=== PATIENT | male | born 1950 | race Caucasian/White ===

== ENCOUNTER 2019-08-01 23:26 | Observation (INO) | payer MEDICARE ==
[~2019-08-01] VITALS: Ht 182.9 cm; Wt 72.3 kg
[2019-08-01] MEDS ORDERED: ASPIRIN 81 MG CHEW TAB PO ONE (23:45)
[2019-08-02] VITALS (8 sets, daily range): BP systolic 96–172; BP diastolic 69–83
[2019-08-02 00:36] LABS: BASOPHILS # (AUTO) 0.1 (0.0-0.1); EOSINOPHILS # (AUTO) 0.4 (0.0-0.4); EOSINOPHILS % 3.7 % (0.0-6.0); HEMOGLOBIN 14.3 g/dL (14.0-18.0); LYMPHOCYTES # (AUTO) 2.6 (1.0-3.2); MEAN CORPUSCULAR HEMOGLOBIN 29.7 pg (28-32); MEAN CORPUSCULAR VOLUME 87.3 fL (81-99); MONOCYTES % 8.3 % (4.4-11.3); NEUTROPHILS # (AUTO) 7.6 (2.1-6.9); NEUTROPHILS % 64.8 % (38.7-80.0); PLATELET COUNT 285 x10e3/uL (140-360); RED BLOOD COUNT 4.81 x10e6/uL (4.3-5.7); RED CELL DISTRIBUTION WIDTH 14.6 % (11.7-14.4)
[2019-08-02 00:37] LABS: BILIRUBIN,URINE NEGATIVE (NEGATIVE); CLARITY,URINE CLEAR (CLEAR); COLOR,URINE YELLOW (YELLOW); KETONES,URINE NEGATIVE (NEGATIVE); LEUKOCYTE ESTERASE ,URINE NEGATIVE (NEGATIVE); NITRITE,URINE NEGATIVE (NEGATIVE); PROTEIN,URINE DIPSTICK NEGATIVE (NEGATIVE); URINE UROBILINOGEN 0.2 mg/dL (0.2 - 1)
[2019-08-02 00:44] LABS: AMPHETAMINES SCREEN,URINE NEGATIVE (NEGATIVE); BACTERIA,URINE FEW /HPF; BENZODIAZEPINES SCREEN,URINE NEGATIVE (NEGATIVE); EPITHELIAL CELLS,URINE FEW /LPF; PHENCYCLIDINE SCREEN,URINE NEGATIVE (NEGATIVE); WBC,URINE (MAN) 0-5 /HPF (0-5)
--- NOTE | 2019-08-02 01:13 | Diagnostic Imaging Report ---
EXAMINATION: CHEST SINGLE (PORTABLE) INDICATION: Chest pain COMPARISON: Chest radiograph 01/05/2017 FINDINGS: AP view TUBES/LINES/DEVICES: Stable intrathecal thoracic stimulator device within the mid thoracic spine.. LUNGS: Lungs are well inflated. Stable 1.2 cm nodule in the left lower lateral lung field . There is no evidence of pneumonia or pulmonary edema. PLEURA: No pleural effusion or pneumothorax. HEART AND MEDIASTINUM: The cardiomediastinal silhouette is unremarkable. Aortic arch calcifications. BONES AND SOFT TISSUES: No acute osseous lesion. Soft tissues are unremarkable. Healed right rib 7 fracture. UPPER ABDOMEN: No free air under the diaphragm. IMPRESSION: No acute thoracic radiographic abnormality. Stable 1.2 cm nodule in the left lower lateral lung field is likely nipple shadow. Recommend nonemergent chest radiographs, PA and lateral, with nipple markers and oblique views for confirmation. Signed by: Patrice Peace DO on 08/02/2019 1:10 AM
[2019-08-02 01:17] LABS: ALBUMIN 3.8 g/dL (3.5-5.0); ALBUMIN/GLOBULIN RATIO 1.1 (0.8-2.0); CALCIUM 9.8 mg/dL (8.4-10.2); CREATININE, SERUM 1.88 mg/dL (0.72-1.25); POTASSIUM 3.5 mmol/L (3.5-5.1)
[2019-08-02 01:29] LABS: CREATINE KINASE MB 1.4 ng/mL (0-5.0)
[2019-08-02 01:36] LABS: ANION GAP 17.5 mmol/L (8-16)
[2019-08-02] MEDS ORDERED: ASPIRIN 81 MG CHEW TAB PO ONE (01:45)
--- OUTSIDE RECORDS SUMMARY | 2019-08-02 02:24 | XMS REPORT ---
Author Author [facility] Address Unknown Phone Unavailable Care Team Providers Care [employer] Name Role Phone Dieudonne APONTE Unavailable Unavailable Problems This patient has no known problems. Allergies, Adverse Reactions, Alerts This patient has no known allergies or adverse reactions. Medications This patient has no known medications. Results Test Description Test Time Test Comments Text Results Atomic Results Result Comments CHEST SINGLE (PORTABLE) 2019-08-02 01:06:00 [place] [address] Patient Name: GUIDO DUARTE MR #: [id number] : 1950 Age/Sex: 69/M Req #: [id number] [facility] Physician: Ordered by: REGINO APONTE MD Report #: [id number] Location: ER Room/Bed: Procedure: [id number] DX/CHEST SINGLE (PORTABLE) Exam Date: 08/02/19 Exam Time: 0015 REPORT STATUS: Signed EXAMINATION: CHEST SINGLE (PORTABLE) LEIGHTON CATION: Chest pain COMPARISON: Chest radiograph 01/05/2017 FINDINGS: AP view TUBES/LINES/DEVICES: Stable intrathecal thoracic stimulator device within the mid thoracic spine.. LUNGS: Lungs are well inflated. Stable 1.2 cm nodule in the left lower lateral lung field . There is no evidence of pneumonia or pulmonary edema. PLEURA: No pleural effusion or pneumothorax. HEART AND MEDIASTINUM: The cardiomediastinal silhouette is unremarkable. Aortic arch calcifications. BONES AND SOFT TISSUES: No acute osseous lesion. Soft tissues are unremarkable. Healed right rib 7 fracture. UPPER ABDOMEN: No free air under the diaphragm. IMPRESSION: No acute thoracic radiographic abnormality. Stable 1.2 cm nodule in the left lower lateral lung field is likely nipple shadow. Recommend nonemergent chest radiographs, PA and lateral, with nipple markers and oblique views for confirmation. Signed by: Patrice Peace DO on 08/02/2019 1:10 AM Dictated By: PATRICE PEACE DO 9 Transcribed By: MANISHA on 08/02/19109 COPY TO: REGINO APONTE MD
--- NOTE | 2019-08-02 02:30 | NUR ---
Patient arrived from ER. Patient alert and oriented x2. Patient has no symptoms of distress noted. Patient instructed to use call lynn for assistance. Patient instructed not to get out of bed. Patient verbalized understanding. Patient unable to name current medications. Patient will bring list of medications and preferred pharmacy.
[2019-08-02 08:47] LABS: CHOL/HDL RATIO 3.7 (3.9-4.7)
[2019-08-02] MEDS ORDERED: ASPIRIN 325 MG TAB PO SCH (09:00)
[2019-08-02] MEDS: FAMOTIDINE 20 MG TAB PO SCH ×2 (09:20→17:22)
--- NOTE | 2019-08-02 12:00 | NUR ---
Spoke to patient's , Betty Mckinney [phone] on the telephone, phone number will given to admissions department for patient's records.
[2019-08-02 13:21] LABS: CREATINE KINASE MB 0.9 ng/mL (0-5.0)
--- NOTE | 2019-08-02 13:34 | NUR ---
WOUND CARE SCREENING DONE 69 YO MALE R/T 16 KEVIN SCORE NO ABNORMAL FINDINGS NOTED DURING TOTAL SKIN ASSESSMENT PATIENT STATES ABILITY TO TURN AND OFFLOAD NURSING CONTINUES TO MAINTAIN MODERATE PUP INTERVENTIONS AND ALTERNATING PRESSURE SURFACE NURSING TO CONSULT WOUND CARE FOR ANY FUTURE SKIN CARE OR INTERVENTION NEEDS Addendum: 08/02/19 at 1336 by Constantino Jones RN Amended: Links added.
--- NOTE | 2019-08-02 13:42 | NUR ---
Nutrition Intervention Note RD Recommendation(s) for Physician: -Consider 2000 ADA, cardiac diet per MD. -If BS are elevated, consider switching Ensure Compact to Glucerna. Plan of Care: RD following, monitoring for tolerance and adequacy. Ensure Compact BID. Nutrition reason for involvement: -MST- 5 RD Assessment 08/02: 69 YOM admitted for chest pain and dementia with PMH listed below. Pt reports that his appetite has been poor for about one year and that he lost 50 lbs. The pt stated his UBW is around 180-190 lbs. Per his EMR, the pt was 162 lbs in 2017 suggesting a 3% weight loss within 2 years which is not significant. The pt has never tried a ONS before but was open to trying one. Pt reported he has some N/V, denied chewing or swallowing issues as well as any food allergies. Pt had no other questions or concerns. Will continue to monitor. Principal Problems/Diagnoses: PMH: Past Medical History Hypertension Diabetes Seizure Disorder Cirrhosis GI: LBM: not recorded Skin: 2 x 2 inch wound (where on the body is not recorded, not PU related) Labs: 08/02: POC GM 114 Meds: pepcid, aspirin, lovenox Ht: 72 in Wt: 157 lbs BMI:21.3 kg/m^2 IBW:178 lbs Malnutrition Evaluation 08/02 The patient does not meet criteria for a specified degree of malnutrition at this time. Will re-evaluate at follow-up as appropriate. Energy intake: -pt reports a poor appetite for over one year Weight loss: -pt had a 3% weight loss within 2 years per EMR. Fat loss: Mild Muscle loss: Moderate Supporting Evidence: Fluid accumulation: unable to evaluate Functional Status: unable to evaluate Nutrition Prescription (Diet Order): cardiac Estimated Nutritional Needs: Calories: 9110-1549(25- 35 kcal/kg/day) Weight used : CBW Protein : 71-107(1-1.5 gram/kg/day ) Weight used: CBW Diet Adequacy: Not meeting calorie needs, Not meeting protein need Diet Education Needs Assessment: Diet education indicated, but patient not appropriate for education at this time. Nutrition Care Level: mod Nutrition Diagnosis: Inadequate energy intake related to medical condition as evidenced by pts need for ONS and reports of poor oral intake. Goal: Patient will meet 75-100% of estimated needs by follow up Progress: N/A Interventions: - (mineral) sodium, fat, cholesterol-modified diet, Commercial beverage Monitoring/Evaluation: -Total energy intake, Total protein intake, Modified diet, Liquid supplement, Weight change Signed: Isabell Suh RD, LD
[2019-08-02] MEDS ORDERED: LEVETIRACETAM500 MG PO (16:46)
[2019-08-02] MEDS ORDERED: GABAPENTIN300 MG PO (16:50)
[2019-08-02] MEDS ORDERED: ASPIRIN EC81 MG PO (16:50)
[2019-08-02] MEDS ORDERED: TENORMIN50 MG PO (16:50)
[2019-08-02] MEDS ORDERED: GLIPIZIDE ER10 MG PO (16:50)
[2019-08-02] MEDS ORDERED: AMLODIPINE BESYL5 MG PO (16:50)
[2019-08-02] MEDS ORDERED: OMEPRAZOLE40 MG PO (16:50)
--- NOTE | 2019-08-02 16:52 | NUR ---
Patient has b/p of 172/82, p75, callled Mary Mccarthy, no answer received, will re-attempt.
[2019-08-02] MEDS: AMLODIPINE BESYLATE 5 MG TAB PO SCH (17:22)
[2019-08-02] MEDS: LEVETIRACETAM 500 MG TAB PO SCH (17:22)
[2019-08-02] MEDS: ENOXAPARIN SOD INJ 40 MG/0.4 ML SYR SC SCH (17:22)
[2019-08-02] MEDS: ATENOLOL 50 MG TAB PO SCH (17:23)
[2019-08-02 18:43] LABS: CREATINE KINASE 63 IU/L (30-200)
[2019-08-02] MEDS: GABAPENTIN 300 MG CAP PO SCH (21:24)
[2019-08-03] VITALS (9 sets, daily range): BP systolic 113–166; BP diastolic 76–95
[2019-08-03] MEDS: GABAPENTIN 300 MG CAP PO SCH ×3 (05:02→20:33)
[2019-08-03] MEDS: LEVETIRACETAM 500 MG TAB PO SCH ×2 (05:02→16:33)
--- NOTE | 2019-08-03 06:41 | NUR ---
H&P LATE ENTRY DOS 08-02-19 at 7am cc: right rib pain HPI: 69yoM, no PCP, with hx cig use 1/2ppd, developed right lower chest pain and cough. Pt admites that cough started before chest pain. PMH: current smoker, HTN PSHx: none Allergies; see emr Fh/SH; 1/2ppd cigs; ; meds; see MAR ROS; no f/c/s/N/V/D/MENDEZ/vision changes/skin rash/back pain v/s; revd PE: RIGHT LOWR RIB SITE TENDER; NO OVERLYING SKIN RASH tired appearing anicteric ns1s2 mod bs soft nt nd no e/t awake; colmenares skin dry n/. affect labs/meds; revd A/P: 69yoM Atypical chest pain Right rib pain Current smoker/Nicotine dependence HTN Abnormal EKG Hyponatremia MILAGROS 1.2cm left lung nodule PLAN IVF trend enzymes 2V CXR lipid panel lovenox/pepcid dispo: f/u further studies; Bucky Kwong MD, PhD.
--- NOTE | 2019-08-03 06:42 | NUR ---
IM- progress note O/N no events ROS; no f/c/s/N/V/D/MENDEZ/vision changes/skin rash/back pain v/s; revd PE: RIGHT LOWR RIB SITE TENDER; NO OVERLYING SKIN RASH tired appearing anicteric ns1s2 mod bs soft nt nd no e/t awake; colmenares skin dry n/. affect labs/meds; revd A/P: 69yoM Atypical chest pain Right rib pain Current smoker/Nicotine dependence HTN Abnormal EKG Hyponatremia MILAGROS 1.2cm left lung nodule DM2 PLAN IVF trend enzymes 2V CXR lipid panel lovenox/pepcid dispo: f/u further studies; 08/03 await CXR 2 view; recheck EKG; check hba1c. LDL 66. Will need CT chest with contrast if nodule is infact real; Treat MILAGROS with fluids; Bucky Kwong MD, PhD.
[2019-08-03] MEDS ORDERED: GLIPIZIDE 5 MG TAB ER PO SCH (07:30)
[2019-08-03] MEDS: PANTOPRAZOLE SOD 40 MG TABEC PO SCH (08:00)
[2019-08-03] MEDS: FAMOTIDINE 20 MG TAB PO SCH ×2 (08:00→16:33)
[2019-08-03] MEDS: ASPIRIN 81 MG ENTERIC COATED PO SCH (08:00)
[2019-08-03] MEDS: ATENOLOL 50 MG TAB PO SCH (08:00)
[2019-08-03] MEDS: AMLODIPINE BESYLATE 5 MG TAB PO SCH (08:00)
[2019-08-03 08:27] LABS: ANION GAP 13.6 mmol/L (8-16); CALCIUM 10.1 mg/dL (8.4-10.2); CREATININE, SERUM 1.49 mg/dL (0.72-1.25); POTASSIUM 3.6 mmol/L (3.5-5.1)
--- NOTE | 2019-08-03 08:37 | Diagnostic Imaging Report ---
EXAMINATION: CHEST 2 VIEWS INDICATION: Re-eval of pulmonary nodule- Please use nipple markers COMPARISON: Chest radiograph 08/02/2019 at 202 1:00 AM hours. FINDINGS: PA and lateral views with nipple markers. TUBES/LINES/DEVICES: Stable neurostimulator stimulator device with 2 rows of electrodes projected on the mid thoracic spine. LUNGS: Lungs are well inflated. Stable 1.2 cm nodule in the left lower lower lobe does not correspond with the nipple marker. No evidence of pneumonia or pulmonary edema. PLEURA: No pleural effusion or pneumothorax. HEART AND MEDIASTINUM: The cardiomediastinal silhouette is unremarkable. Aortic arch calcifications. BONES AND SOFT TISSUES: No acute osseous lesion. Soft tissues are unremarkable. Healed right rib 7 fracture. UPPER ABDOMEN: No free air under the diaphragm. IMPRESSION: 1.2 cm left lower lobe nodule does not correspond to a nipple marker and is consistent with a true nodule. Recommend further evaluation with nonemergent CT chest. Signed by: Dr. Donald Zambrano M.D. on 08/03/2019 8:33 AM
[2019-08-03] MEDS ORDERED: NON-FORMULARY MEDICATION (Glipizide (Glipizide Er) 1 TAB) PO SCH (09:00)
[2019-08-03] MEDS: SODIUM CHLORIDE 0.9% 1000ML 1,000 ML IV SCH ×2 (15:00→20:33)
[2019-08-03] MEDS: ENOXAPARIN SOD INJ 40 MG/0.4 ML SYR SC SCH (16:33)
[2019-08-04] VITALS: BP 149/89
[2019-08-04 04:00] VITALS: BP 121/83
[2019-08-04] MEDS: GABAPENTIN 300 MG CAP PO SCH ×2 (05:00→14:28)
[2019-08-04] MEDS: LEVETIRACETAM 500 MG TAB PO SCH ×2 (05:00→15:20)
[2019-08-04 06:05] LABS: ANION GAP 12.7 mmol/L (8-16); CALCIUM 9.4 mg/dL (8.4-10.2); CREATININE, SERUM 1.25 mg/dL (0.72-1.25); POTASSIUM 3.7 mmol/L (3.5-5.1)
--- NOTE | 2019-08-04 06:50 | NUR ---
Received patient lying in bed with eyes open. respiration even and unlabored without SOB. Call light in reach.
[2019-08-04 07:34] VITALS: BP 128/76
[2019-08-04 07:37] VITALS: BP 128/76
[2019-08-04] MEDS: AMLODIPINE BESYLATE 5 MG TAB PO SCH (07:57)
[2019-08-04] MEDS: PANTOPRAZOLE SOD 40 MG TABEC PO SCH (07:57)
[2019-08-04] MEDS: FAMOTIDINE 20 MG TAB PO SCH ×2 (07:57→15:20)
[2019-08-04] MEDS: ASPIRIN 81 MG ENTERIC COATED PO SCH (07:57)
[2019-08-04] MEDS: ATENOLOL 50 MG TAB PO SCH (07:58)
[2019-08-04] MEDS: SODIUM CHLORIDE 0.9% 1000ML 1,000 ML IV SCH (09:36)
--- NOTE | 2019-08-04 10:00 | NUR ---
Discontinue 20 gauge PIV on left FA due to swelling and infiltration. Provided left arm with warm compress.
[2019-08-04 11:30] VITALS: BP 154/81
--- NOTE | 2019-08-04 13:55 | NUR ---
Patient transported to radiology for CT chest at this time.
--- NOTE | 2019-08-04 14:20 | NUR ---
Patient is back to room from radiology department. respiration even and unlabored without SOB. Call light in reach.
--- NOTE | 2019-08-04 14:48 | Diagnostic Imaging Report ---
EXAM: CT Chest WITH contrast 08/04/2019 1:47 PM INDICATION: ^Evaluate lung nodule and possible lymph node ^[id number] ^1415 ^Y COMPARISON: Chest radiograph 08/03/2019, 08/02/2019, 01/05/2017 TECHNIQUE: Chest was scanned utilizing a multidetector helical scanner from the lung apex through the level of the adrenal glands after administration of IV contrast. Coronal and sagittal reformations were obtained. IV CONTRAST: 100 mL Isovue-370 ORAL CONTRAST: None COMPLICATIONS: None RADIATION DOSE: Total DLP: 489.7 mGy*cm Estimated effective dose: (DLP x 0.015 x size factor) mSv CTDIvol has been reviewed. It is below the limits set by the Radiation Protocol Committee (RPC). FINDINGS: LINES/ TUBES: Neurostimulator leads in the spinal canal at the level of the mid thoracic spine. LUNGS AND AIRWAYS: Moderate bilateral upper lobe predominant centrilobular emphysema. Mild subpleural reticulation of the lungs in the anterior upper lobes, better seen on series 3, image 27 likely represents emphysema related mild pulmonary fibrosis. No honeycombing. Mild bronchiectasis with peribronchial wall thickening in both lower lobes, left greater than right. Minimal linear scarring in the left lower lobe. No suspicious nodules or consolidations. PLEURA: The pleural spaces are clear. HEART AND MEDIASTINUM: The thyroid gland is normal. No mediastinal, hilar or axillary lymphadenopathy. The heart is normal in size. There is no pericardial effusion. Diffuse mild aneurysmal dilatation of the descending thoracic aorta measuring up to 4.1 cm in the proximal segment and associated with extensive intraluminal thrombus, mainly in the mid segment with a minimal luminal diameter of 1.9 cm. There is also multiple penetrating ulcers with the largest in the distal descending segment measuring up to 6 mm on series 2, image 85. Mild calcifications of the aortic valve. Moderate coronary artery calcifications. The main pulmonary artery normal in caliber, measuring 2.1 cm in diameter. UPPER ABDOMEN: Indeterminate 1.9 cm left adrenal gland nodule on series 2, image 110. Single calcified granuloma in the spleen. BONES: Moderate wedge compression deformity of L1 vertebral body, likely chronic. SOFT TISSUES: Unremarkable. IMPRESSION: Moderate bilateral emphysema with mild emphysema related pulmonary fibrosis in the upper lobes. No suspicious pulmonary nodules or masses. The left lower lobe abnormality on chest radiograph corresponds to mild linear scarring and mild bronchiectasis Diffuse mild aneurysmal dilatation of the descending thoracic aorta (measuring up to 4.1 cm) and associated with extensive amount of intraluminal thrombus and multiple penetrating ulcers. Recommend follow-up CTA chest in 6 months. Indeterminate 1.9 cm left adrenal gland nodule. Recommend further evaluation with CT or MRI abdomen with and without contrast adrenal gland protocol. Signed by: Dr. Claudia Arredondo M.D. on 08/04/2019 2:44 PM
[2019-08-04] MEDS: ENOXAPARIN SOD INJ 40 MG/0.4 ML SYR SC SCH (15:20)
[2019-08-04 16:15] VITALS: BP 141/77
--- NOTE | 2019-08-04 16:30 | NUR ---
RECEIVED PATIENT FROM ROOM 175 FOR CONTINUITY OF CARE. PATIENT ORIENTED TO ROOM AND POLICIES. NO ACUTE DISTRESS NOTED. CALL LIGHT WITHIN REACH. BED IN THE LOWEST POSITION.
--- NOTE | 2019-08-04 16:31 | NUR ---
Report given to Ashley. Transported patient to room 284. respiration even and unlabored without SOB.
--- NOTE | 2019-08-04 17:29 | NUR ---
Notified Dr. Kwong of CT impressions: [Moderate bilateral emphysema with mild emphysema related pulmonary fibrosis in the upper lobes. No suspicious pulmonary nodules or masses. The left lower lobe abnormality on chest radiograph corresponds to mild linear scarring and mild bronchiectasis. Diffuse mild aneurysmal dilatation of the descending thoracic aorta (measuring up to 4.1 cm) and associated with extensive amount of intraluminal thrombus and multiple penetrating ulcers. Recommend follow-up CTA chest in 6 months. Indeterminate 1.9 cm left adrenal gland nodule. Recommend further evaluation with CT or MRI abdomen with and without contrast adrenal gland protocol]. Per MD discharge patient home, continue home medications, add Aspirin 325mg PO daily to patient's discharge medications which patient can get over the counter. Follow up with Dr. Kwong this upcoming week.
[2019-08-04] MEDS ORDERED: ASPIRIN325 MG PO ×2 (17:47→17:48)
--- NOTE | 2019-08-04 18:18 | NUR ---
SPOKE TO PATIENT'S ABOUT PATIENT BEING DISCHARGED. SHE STATED SHE WILL BE ON HER WAY.
[2019-08-04] MEDS ORDERED: IOPAMIDOL 370 MG/ML 200 ML INFUS..BTL INJ ONE (18:41)
[2019-08-04] MEDS ORDERED: SODIUM CHLORIDE 0.9% 50ML 50 ML ONE (18:41)
--- NOTE | 2019-08-04 18:50 | NUR ---
REPORT GIVEN TO ONCOMING NURSE. PATIENT IS IN STABLE CONDITION. CALL LIGHT WITHIN REACH. WAITING ON FAMILY MEMBER TO PICK PATIENT UP DUE TO SAFETY CONCERNS.
--- NOTE | 2019-08-04 19:17 | NUR ---
Patient discharged and left unit accompanied by daughter and grand daughter.
--- NOTE | 2019-08-04 19:19 | NUR ---
Discharge assessment: vitals: stable, iv access removed, pressure applied to site no bleeding noted., follow up appointment and rx discussed with patient and family, no shortness of breath, no chest pains and no concerns on discharge.
== END 2019-08-04 19:10 | disposition home or self-care (01) ==
LOC: ER 23:26 → ERHOLD 08-02 02:21 → IMCU 08-02 02:33 → MED/SURG3 08-04 16:30
PROVIDERS: ADMIT Internal Medicine; ATTEND Internal Medicine
DX: R07.89 Other chest pain (principal); R41.82 Altered mental status, unspecified; F17.210 Nicotine dependence, cigarettes, uncomplicated; R05 Cough; I10 Essential (primary) hypertension; R07.81 Pleurodynia; E87.1 Hypo-osmolality and hyponatremia; R94.31 Abnormal electrocardiogram [ECG] [EKG]; N17.9 Acute kidney failure, unspecified; E11.9 Type 2 diabetes mellitus without complications; R91.8 Other nonspecific abnormal finding of lung field; Z79.82 Long term (current) use of aspirin
CPT/HCPCS: 36415; 71045; 71046; 71260; 80048; 80053; 80061; 80307; 81001; 82550; 82553; 82948; 83036; 84484; 85025; 93005; 99284; G0378; J1650; J7030; Q9967

== ENCOUNTER 2025-06-27 16:30 | Emergency (ER) | payer MEDICARE, OTHER ==
[~2025-06-27] VITALS: Ht 177.8 cm; Wt 63.5 kg
[~2025-06-27 16:30] MED LIST: AMLODIPINE BESYL5 MG PO; ASPIRIN EC81 MG PO; ASPIRIN325 MG PO; GABAPENTIN300 MG PO; GLIPIZIDE ER10 MG PO; LEVETIRACETAM500 MG PO; OMEPRAZOLE40 MG PO; TENORMIN50 MG PO
[2025-06-27 17:30] VITALS: PULSE 68; RESP 16; TEMP 97.7
[2025-06-27] MEDS: GUAIFENESIN 600MG/DEXTROMETHORPHAN 30MG TABSR PO STA (18:47)
[2025-06-27] MEDS ORDERED: DOXYCYCLINE HY100 MG PO (19:19)
[2025-06-27] MEDS ORDERED: MUCINEX DM ER1 EACH PO (19:19)
[2025-06-27 20:15] VITALS: BP 129/84; PULSE 74; RESP 18; TEMP 98.3; O2SAT 98
== END 2025-06-27 19:48 | disposition home or self-care (01) ==
LOC: ER 18:07
DX: R05.9 Cough, unspecified (principal); J18.9 Pneumonia, unspecified organism; I12.9 Hypertensive chronic kidney disease with stage 1 through stage 4 chronic kidney disease, or unspecified chronic kidney disease; E11.22 Type 2 diabetes mellitus with diabetic chronic kidney disease; N18.9 Chronic kidney disease, unspecified; F03.90 Unspecified dementia, unspecified severity, without behavioral disturbance, psychotic disturbance, mood disturbance, and anxiety; K76.9 Liver disease, unspecified; G40.909 Epilepsy, unspecified, not intractable, without status epilepticus
CPT/HCPCS: 71045; 93005; 99284